=== PATIENT | female | born 1980 | race Caucasian/White ===

== ENCOUNTER → 2017-04-30 | Outpatient (CLI) | payer MEDICAID ==
--- NOTE | 2017-04-30 17:20 | RADIOLOGY REPORT (SQ) ---
EXAM DESCRIPTION: VENOUS UNILATERAL LOWER COMPLETED DATE/TIME: 04/30/2017 5:00 pm REASON FOR STUDY: R60.0 RLE R60.0 LOCALIZED EDEMA COMPARISON: None. TECHNIQUE: Dynamic and static mcclain scale and color images acquired of the right leg venous system. S elected spectral images acquired with additional compression and augmentation maneuvers. The contrala teral common femoral vein and saphenofemoral junction were also imaged. Images stored on PACS. LIMITATIONS: None. FINDINGS: COMMON FEMORAL: Normal phasicity, compression and augmentation. No visualized echogenic ma terial on mcclain scale. No defects on color images. FEMORAL: Normal compression and augmentation. No visualized echogenic material on mcclain scale. No defe cts on color images. POPLITEAL: Normal compression, augmentation. No visualized echogenic material on mcclain scale. No defec ts on color images. CALF VESSELS: Normal compression, augmentation. No visualized echogenic material on mcclain scale. No de fects on color images. GSV and SSV: Normal compression, augmentation. No visualized echogenic material on mcclain scale. No def ects on color images. ANY DEEP VENOUS INSUFFICIENCY: Not evaluated. ANY EVIDENCE OF POPLITEAL CYST: No. OTHER: No other significant finding. CONTRALATERAL COMMON FEMORAL VEIN AND SAPHENOFEMORAL JUNCTION: Normal phasicity, compression and augmentation. No visualized echogenic material on mcclain scale. No de fects on color images. IMPRESSION: NO EVIDENCE DVT OR SVT IN THE RIGHT LEG. TECHNICAL DOCUMENTATION: JOB ID: [id number] [employer]- All Rights Reserved
== END ==
LOC: SP 16:13
PROVIDERS: ATTEND Physician Assistant Medical
DX: R60.0 Localized edema (principal)
CPT/HCPCS: 93971

== ENCOUNTER 2017-05-27 11:23 | Emergency (ER) | payer MEDICAID ==
[2017-05-27] MEDS ORDERED: ASPIRIN 81 MG TABLET, CHEWABLE PO ONE (11:53)
--- NOTE | 2017-05-27 11:54 | ER Document Report ---
ED Medical Screen (RME) - General Chief Complaint: Chest Pain > 30 Stated Complaint: CHEST PAIN Time Seen by Provider: 05/27/17 11:52 Notes: Patient arrives complaining of a burning pain in the left chest. She states she had this pain yesterday that lasted for "a brief second". Today she states that it lasted several minutes. It was in the left chest. She had no nausea no sweating and no shortness of breath. No recent trauma. She denies any previous history of cardiac disease or evaluations. She states she does have protein S deficiency that was diagnosed during her childbirth. She denies any previous clots. She does smoke but does not use control pills. She denies any recent stress or anxiety. TRAVEL OUTSIDE OF THE [place] IN LAST 30 DAYS: No - Related Data Allergies/Adverse Reactions: Penicillins Allergy (Verified 05/27/17 11:24) Home Medications: Current Home Medications No Home Medications 05/27/17 [History] Past Medical History - Social History Chew tobacco use (# tins/day): No Frequency of alcohol use: Occasional Drug Abuse: None Renal/ Medical History: Denies: Hx Peritoneal Dialysis Past Surgical History: Reports: Hx Section - x 3, Hx Tubal Ligation - Immunizations Hx Diphtheria, Pertussis, Tetanus Vaccination: Yes Physical Exam - Vital signs Vitals: Temp Pulse Resp BP Pulse Ox 97.8 F 74 15 145/105 H 98 05/27/17 11:35 05/27/17 11:35 05/27/17 11:35 05/27/17 11:35 05/27/17 11:35 Course - Vital Signs Vital signs: Temp Pulse Resp BP Pulse Ox 97.8 F 74 15 145/105 H 98 05/27/17 11:35 05/27/17 11:35 05/27/17 11:35 05/27/17 11:35 05/27/17 11:35
[2017-05-27 12:30] LABS: ABSOLUTE BASOPHILS # (AUTO) 0.1 10^3/uL (0.0-0.2); ABSOLUTE EOSINOPHILS # (AUTO) 0.1 10^3/uL (0.0-0.6); ABSOLUTE LYMPHOCYTES (AUTO) 2.6 10^3/uL (0.5-4.7); ABSOLUTE MONOCYTES (AUTO) 0.6 10^3/uL (0.1-1.4); ALANINE AMINOTRANSFERASE 37 U/L (9-52); ALBUMIN 4.5 g/dL (3.5-5.0); ALKALINE PHOSPHATASE 90 U/L (38-126); ANION GAP 9 (5-19); ASPARTATE AMINO TRANSFERASE 26 U/L (14-36); BASOPHILS % (AUTO) 0.6 % (0-2); BILIRUBIN,DIRECT 0.4 mg/dL (0.0-0.4); BILIRUBIN,TOTAL 0.8 mg/dL (0.2-1.3); BLOOD UREA NITROGEN 9 mg/dL (7-20); CALCIUM 9.6 mg/dL (8.4-10.2); CARBON DIOXIDE 24 mmol/L (22-30); CHLORIDE 107 mmol/L (98-107); CREATININE RESULT 0.69 mg/dL (0.52-1.25); EOSINOPHILS % (AUTO) 1.2 % (0-6); GLUCOSE 85 mg/dL (75-110); HEMOGLOBIN 16.3 g/dL (12.0-15.5); HGB HCT DIFFERENCE 0.9; MEAN CORPUSCULAR HEMOGLOBIN 29.6 pg (27.0-33.4); MEAN CORPUSCULAR HGB CONC 33.9 g/dL (32.0-36.0); MEAN CORPUSCULAR VOLUME 87 fl (80-97); MONOCYTES % (AUTO) 6.5 % (3-13); POTASSIUM 4.2 mmol/L (3.6-5.0); RED BLOOD COUNT 5.49 10^6/uL (3.72-5.28); RED CELL DISTRIBUTION WIDTH 13.2 % (11.5-14.0); SEGMENTED NEUTROPHILS % (AUTO) 63.7 % (42-78); SODIUM 140.2 mmol/L (137-145); TOTAL PROTEIN 7.6 g/dL (6.3-8.2); WHITE BLOOD COUNT 9.4 10^3/uL (4.0-10.5)
--- NOTE | 2017-05-27 12:33 | RADIOLOGY REPORT (SQ) ---
EXAM DESCRIPTION: CHEST PA/LAT COMPLETED DATE/TIME: 05/27/2017 12:20 pm REASON FOR STUDY: cp COMPARISON: Two-view chest 06/03/2012 EXAM PARAMETERS: NUMBER OF VIEWS: two views TECHNIQUE: Digital Frontal and Lateral radiographic views of the chest acquired. RADIATION DOSE: NA LIMITATIONS: none FINDINGS: LUNGS AND PLEURA: No opacities, masses or pneumothorax. No pleural effusion. MEDIASTINUM AND HILAR STRUCTURES: No masses or contour abnormalities. HEART AND VASCULAR STRUCTURES: Heart normal size. No evidence for failure. BONES: No acute findings. HARDWARE: None in the chest. OTHER: No other significant finding. IMPRESSION: NO SIGNIFICANT RADIOGRAPHIC FINDING IN THE CHEST. TECHNICAL DOCUMENTATION: JOB ID: [id number] [employer]- All Rights Reserved
[2017-05-27 13:27] VITALS: BP 130/93
--- NOTE | 2017-05-27 13:32 | ER Document Report ---
ED Cardiac - General Chief Complaint: Chest Pain > 30 Stated Complaint: CHEST PAIN Time Seen by Provider: 05/27/17 11:52 Notes: Patient states she was sitting at her desk at work when she developed left- sided chest pain. She states she had a similar episode yesterday that was brief. Today it lasted longer. She had some shortness of breath with it. She stated that it lasted several minutes. It was sharp. Nothing appear to make it better or worse. There is no radiation. It was moderate in intensity. No previous history of cardiac disease or evaluation. Patient denies hormone therapy. Patient does smoke. TRAVEL OUTSIDE OF THE [place] IN LAST 30 DAYS: No - Related Data Allergies/Adverse Reactions: Penicillins Allergy (Verified 05/27/17 11:24) Home Medications: Current Home Medications No Home Medications 05/27/17 [History] Past Medical History - General Information source: Patient - Social History Smoking Status: Current Every Day Smoker Chew tobacco use (# tins/day): No Frequency of alcohol use: Occasional Drug Abuse: None Family History: None, Reviewed & Not Pertinent. denies: CAD Patient has suicidal ideation: No Patient has homicidal ideation: No Renal/ Medical History: Denies: Hx Peritoneal Dialysis Past Surgical History: Reports: Hx Section - x 3, Hx Tubal Ligation - Immunizations Hx Diphtheria, Pertussis, Tetanus Vaccination: Yes Review of Systems - Review of Systems Constitutional: denies: Chills, Fever Cardiovascular: Chest pain Respiratory: Short of breath. denies: Cough Gastrointestinal: denies: Diarrhea, Vomiting -: Yes All other systems reviewed and negative Physical Exam - Vital signs Vitals: Temp Pulse Resp BP Pulse Ox 97.8 F 74 15 145/105 H 98 05/27/17 11:35 05/27/17 11:35 05/27/17 11:35 05/27/17 11:35 05/27/17 11:35 Interpretation: Hypertensive - General General appearance: Appears well, Alert - HEENT Head: Normocephalic, Atraumatic Eyes: Normal Pupils: PERRL - Respiratory Respiratory status: No respiratory distress Chest status: Nontender Breath sounds: Normal Chest palpation: Normal - Cardiovascular Rhythm: Regular Heart sounds: Normal auscultation Murmur: No - Abdominal Inspection: Normal Distension: No distension Bowel sounds: Normal Tenderness: Nontender Organomegaly: No organomegaly - Back Back: Normal, Nontender - Extremities General upper extremity: Normal inspection, Nontender, Normal color, Normal ROM , Normal temperature General lower extremity: Normal inspection, Nontender, Normal color, Normal ROM , Normal temperature, Normal weight bearing. No: Jessi's sign - Neurological Neuro grossly intact: Yes Cognition: Normal Orientation: AAOx4 Newell Coma Scale Eye Opening: Spontaneous Newell Coma Scale Verbal: Oriented Toyin Coma Scale Motor: Obeys Commands Newell Coma Scale Total: 15 Speech: Normal Motor strength normal: LUE, RUE, LLE, RLE Sensory: Normal - Psychological Associated symptoms: Normal affect, Normal mood - Skin Skin Temperature: Warm Skin Moisture: Dry Skin Color: Normal Course - Vital Signs Vital signs: Temp Pulse Resp BP Pulse Ox 98.4 F 67 18 130/93 H 100 05/27/17 13:27 05/27/17 13:27 05/27/17 13:27 05/27/17 13:27 05/27/17 13:27 - Laboratory Result Diagrams: 05/27/17 12:01 05/27/17 12:01 Laboratory results interpreted by me: 05/27/17 12:01 RBC 5.49 H Hgb 16.3 H Hct 48.0 H - Diagnostic Test Radiology reviewed: Image reviewed, Reports reviewed - No acute pathology on chest x-ray Discharge - Discharge Clinical Impression: Atypical chest pain Condition: Stable Disposition: HOME, SELF-CARE Instructions: Chest Wall Pain ([facility]) Additional Instructions: Please contact your primary care physician as soon as possible to arrange follow -up. Forms: Elevated Blood Pressure, Smoking Cessation Education, Return to Work Referrals: ALAN BARRETO MD [ACTIVE STAFF] - Follow up as needed
--- NOTE | 2017-05-27 21:53 | EKG REPORT ---
SEVERITY:- NORMAL ECG - SINUS RHYTHM : Confirmed by: Richard Gill 27-May-2017 21:52:25
== END 2017-05-27 13:39 | disposition home or self-care (01) ==
LOC: ER 11:23
DX: R07.89 Other chest pain (principal); R06.02 Shortness of breath; F17.200 Nicotine dependence, unspecified, uncomplicated; Z88.0 Allergy status to penicillin
CPT/HCPCS: 36415; 71020; 80053; 84484; 85025; 85379; 93005; 93010; 99285